=== PATIENT | male | born 2000 ===

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

== ENCOUNTER 2018-03-26 14:01 | Emergency (ER) | payer OTHER ==
[~2018-03-26] VITALS: Ht 175.3 cm; Wt 75.7 kg
[2018-03-26] MEDS ORDERED: CORTISPORIN EAR10 M1 OT (16:15)
== END 2018-03-26 21:32 | disposition home or self-care (01) ==
LOC: ER 14:01
DX: H66.92 Otitis media, unspecified, left ear (principal)